=== PATIENT | male | born 2000 | race Caucasian/White ===

== ENCOUNTER → 2020-04-19 09:49 | Outpatient (CLI) | payer SELFPAY ==
--- NOTE | 2020-04-19 09:50 | DI.US.S_ITS ---
PROCEDURE: US SCROTUM INDICATIONS: PAIN; POSSIBLE EPIDIDYMITIS TECHNIQUE: Real-time scanning was performed of the scrotum and testicles, with image documentation. Color and pulse Doppler interrogation was performed of both testicles. COMPARISON: None. FINDINGS: Right: Testicle is normal in size at 4.2 x 2.1 x 2.3 cm, and homogenous in echotexture. Epididymis is normal in overall size and morphology. No hydrocele or varicoceles. Overlying scrotal skin is normal in thickness. Left: Testicle is normal in size at 3.7 x 2.2 x 2.7 cm, and homogeneous in echotexture. Epididymis is normal in overall size and morphology. No hydrocele or varicoceles. Overlying scrotal skin is normal in thickness. Doppler: Color and pulse Doppler demonstrate normal and symmetric arterial flow in both testicles. Miscellaneous: No inguinal hernia is identified bilaterally. IMPRESSION: Unremarkable sonographic evaluation of the bilateral testicle and epididymis. No inguinal hernia is identified. Dictated by: Alberto Wyatt M.D. on 04/19/2020 at 11:10 Approved by: Alberto Wyatt M.D. on 04/19/2020 at 11:12
== END ==
PROVIDERS: PCP Family Medicine; Referring Provider Family Medicine; Visit Provider Family Medicine
DX: N50.82 Scrotal pain (principal)
CPT/HCPCS: 76870

== ENCOUNTER → 2020-04-23 08:17 | Outpatient (CLI) | payer SELFPAY ==
--- NOTE | 2020-04-23 08:30 | DI.US.S_ITS ---
PROCEDURE: US RENAL COMPLETE INDICATIONS: LEFT FLANK PAIN TECHNIQUE: Real-time scanning was performed of the kidneys and bladder, with image documentation. COMPARISON: None. FINDINGS: Kidneys: Kidneys are normal in size. Right kidney measures 10.6 cm long; left kidney measures 9.8 cm long. Right renal cortical thickness is 1.5 cm; left renal cortical thickness is 1.1 cm. Renal cortical echotexture is normal. No hydronephrosis or nephrolithiasis. No suspicious solid mass lesions. Bladder: Pre-void bladder volume is 63.8 mL. Post-void residual is zero mL. Pre-void images demonstrate no intraluminal masses or stones. On pre-void images, bilateral ureteral jets are noted with color Doppler interrogation. (Of note, ureteral jets may not be detectable in up to 25% of cases due to insufficient differences in specific gravity between ureteral and bladder urine). Miscellaneous: No free pelvic fluid. IMPRESSION: 1. No hydronephrosis or nephrolithiasis. 2. No post void residual. Dictated by: Sandy Vides M.D. on 04/23/2020 at 10:14 Approved by: Sandy Vides M.D. on 04/23/2020 at 10:16
== END ==
PROVIDERS: PCP Family Medicine; Referring Provider Family Medicine; Visit Provider Family Medicine
DX: N45.1 Epididymitis (principal); R10.9 Unspecified abdominal pain
CPT/HCPCS: 76770

== ENCOUNTER → 2025-02-17 16:38 | Outpatient (CLI) | payer OTHER, SELFPAY ==
[2025-02-17 18:03] LABS: BUN Creatinine Ratio 14.1 (6-22); Blood Urea Nitrogen 11 mg/dL (9-20); Calcium 9.9 mg/dL (8.4-10.2); Carbon Dioxide 24 mmol/L (22-32); Chloride 103 mmol/L (98-107); Estimated Glomerular Filt Rate > 60 mL/min (>60); Glucose 110 mg/dL (70-99); HEMOLYSIS < 15 (0-50); Potassium 4.2 mmol/L (3.4-5.1); Sodium 138 mmol/L (137-145)
== END ==
PROVIDERS: PCP Family Medicine; Referring Provider Family Medicine; Visit Provider Family Medicine
DX: E34.9 Endocrine disorder, unspecified (principal)
CPT/HCPCS: 36415; 80048; 82670; 84402; 84403

== ENCOUNTER → 2025-05-11 15:46 | Outpatient (CLI) | payer OTHER, SELFPAY ==
[2025-05-11 17:11] LABS: Blood Urea Nitrogen 15 mg/dL (9-20); Calcium 9.6 mg/dL (8.4-10.2); Carbon Dioxide 24 mmol/L (22-32); Chloride 106 mmol/L (98-107); Estimated Glomerular Filt Rate > 60 mL/min (>60); Glucose 129 mg/dL (70-99); HEMOLYSIS < 15 (0-50); Potassium 4.2 mmol/L (3.4-5.1); Sodium 140 mmol/L (137-145)
[2025-05-11 17:42] LABS: Estradiol, Total 173.2 pg/mL
== END ==
PROVIDERS: PCP Family Medicine
DX: E34.9 Endocrine disorder, unspecified (principal)
CPT/HCPCS: 36415; 80048; 82670; 84402

== ENCOUNTER → 2025-07-31 16:14 | Outpatient (CLI) | payer OTHER, SELFPAY ==
[2025-07-31 18:09] LABS: Blood Urea Nitrogen 12 mg/dL (9-20); Calcium 9.1 mg/dL (8.4-10.2); Carbon Dioxide 23 mmol/L (22-32); Chloride 105 mmol/L (98-107); Estimated Glomerular Filt Rate > 60 mL/min (>60); Glucose 118 mg/dL (70-99); HEMOLYSIS < 15 (0-50); Potassium 4.3 mmol/L (3.4-5.1); Sodium 137 mmol/L (137-145)
[2025-07-31 18:43] LABS: Estradiol, Total 109.6 pg/mL
== END ==
PROVIDERS: PCP Family Medicine; Referring Provider Family Medicine; Visit Provider Family Medicine
DX: E34.9 Endocrine disorder, unspecified (principal)
CPT/HCPCS: 36415; 80048; 82670; 84403